=== PATIENT | female | born 1990 | race Caucasian/White ===

== ENCOUNTER 2018-11-10 11:44 | Emergency (ER) | payer MEDICAID ==
[~2018-11-10] VITALS: Ht 162.6 cm; Wt 43.7 kg
[2018-11-10 11:45] VITALS: Ht 162.6 cm; Wt 43.7 kg
[2018-11-10 16:25] VITALS: BP 103/54
== END 2018-11-10 16:24 | disposition home or self-care (01) ==
LOC: ED 11:44
DX: J45.901 Unspecified asthma with (acute) exacerbation (principal)
CPT/HCPCS: J7512; Q0092